=== PATIENT | female | born 1990 | race Caucasian/White ===

== ENCOUNTER 2017-11-02 07:06 | Outpatient (CLI) | payer OTHER ==
--- NOTE | 2017-11-02 09:57 | ULT ---
RENAL ULTRASOUND DOPPLER DUPLEX Date: 11-02-17 History: IGA nephropathy. N03.1 Proteinuria. R80.9 Hematuria. N02.1, R31.9 Chronic renal failure. N18.1 Urinary tract infection. N39.0 Incontinence. R32 Technique: Grayscale images of bilateral kidneys and urinary bladder. Color flow and spectral analysis of select arteries associated with bilateral kidneys. FINDINGS: Highest peak systolic velocities: Right renal artery: 140 cm/s Left renal artery: 150 cm/s Aorta: 150 cm/s Right renal artery/aorta ratio: 1.0 Left renal artery/aorta ratio: 1.0 Resistive Index: Right arcuate: 0.62 Left arcuate: 0.63 Renal measurements: Right kidney: 13.5 x 5 x 5.5 cm Left kidney: 13 x 6.5 x 6 cm No hydronephrosis bilaterally. No moderate sized or large solid renal mass or cyst identified. Bladder volume: 28 ml at the time of this scan. IMPRESSION: No pathology identified. POS: [facility]
== END 2017-11-02 07:07 | disposition home or self-care (01) ==
LOC: SCSULT 07:06
PROVIDERS: ATTEND Family Medicine
DX: N18.9 Chronic kidney disease, unspecified (principal); D63.1 Anemia in chronic kidney disease; N02.8 Recurrent and persistent hematuria with other morphologic changes; R80.9 Proteinuria, unspecified; R31.9 Hematuria, unspecified; E66.9 Obesity, unspecified; M19.90 Unspecified osteoarthritis, unspecified site; R32 Unspecified urinary incontinence; N39.0 Urinary tract infection, site not specified
CPT/HCPCS: 76700; 76770

== ENCOUNTER 2018-07-14 08:22 | Outpatient (CLI) | payer OTHER ==
[2018-07-14 09:17] LABS: BHCG - Serum Negative (NEGATIVE); Pregs Control Background? CLEAR/WHITE (CLR/WHITE); Pregs Control Bar Appear? YES (CONTROL BAR)
[2018-07-14 09:48] LABS: Estimated GFR-MDRD - POC Greater than 90
[2018-07-14] MEDS ORDERED: Iopamidol 370 76% 100 ML VIAL ONE (10:06)
--- NOTE | 2018-07-14 11:57 | CT ---
CT ANGIOGRAM OF THE ABDOMEN: Date: 07-14-18 Comparison: None. History: IGA nephropathy, hematuria, evaluate arterial structures. Technique: Axial CT imaging at 2.5 mm intervals through the abdomen with IV contrast using a CT angio gram protocol. Coronal and sagittal 3D reformatted imaging obtained. FINDINGS: Imaged lung bases are grossly unremarkable, slightly limiting assessment secondary to respiratory mot ion artifact. Superior aspect of the liver is not fully imaged on this exam. The imaged hepatic paren chyma appears grossly unremarkable. Cholecystectomy clips are present. The spleen, the pancreas, and the adrenal glands appear grossly unremarkable. The kidneys are unremarkable. The abdominal aorta demonstrates no evidence for aneurysm or dissection. The celiac axis, the superior mesenteric artery, and the inferior mesenteric artery are patent and of normal caliber. The renal arteries are patent and of normal caliber bilaterally. No vascular lesion is seen involving either kidney. There is no lymphadenopathy in the abdomen. Osseous structures appear grossly unremarkable. IMPRESSION: Unremarkable CT angiogram of the abdomen. POS: [facility]
== END 2018-07-14 08:23 | disposition home or self-care (01) ==
LOC: CT 08:22
PROVIDERS: ATTEND Internal Medicine Nephrology
DX: Z32.00 Encounter for pregnancy test, result unknown (principal); N03.1 Chronic nephritic syndrome with focal and segmental glomerular lesions; R80.9 Proteinuria, unspecified; R31.9 Hematuria, unspecified; N18.1 Chronic kidney disease, stage 1; E66.9 Obesity, unspecified; M19.90 Unspecified osteoarthritis, unspecified site; D63.1 Anemia in chronic kidney disease; R32 Unspecified urinary incontinence; N39.0 Urinary tract infection, site not specified
CPT/HCPCS: 36415; 74175; 82565; 84703

== ENCOUNTER 2018-08-22 01:13 | Outpatient (CLI) | payer OTHER ==
[2018-08-22 09:35] LABS: Hemoglobin 11.3 g/dL (12.0-16.0); Mean Corpuscular HGB CONC 33.4 g/dL (32.0-36.0); Mean Corpuscular Hemoglobin 28.8 pg (27.0-31.0); Mean Corpuscular Volume 86.2 fL (78.0-98.0); Mean Platelet Volume 6.9 fL (7.4-10.4); Platelet Count 405 thou/uL (130-400); Red Blood Cell (RBC) Count 3.91 mill/uL (4.20-5.40); White Blood Cell (WBC) Count 8.1 thou/uL (4.8-10.8)
[2018-08-22 09:36] LABS: BHCG - Serum Negative (NEGATIVE); Pregs Control Background? CLEAR/WHITE (CLR/WHITE); Pregs Control Bar Appear? YES (CONTROL BAR)
[2018-08-22 09:38] LABS: PTT 31.2 SEC (22.9-36.1); Prothrombin Time 13.6 SEC (12.0-14.7)
[2018-08-22 09:42] LABS: Bilirubin Negative (Negative); Blood, Urine Large (Negative); Clarity CLEAR (Clear); Glucose, Urine (Dipstick) Negative (Negative); Leukocyte Negative (Negative); Nitrite Negative (Negative); Protein, Urine (Dipstick) 30 mg/dL (Neg-Trace); Specific Gravity, Urine 1.016 (1.002-1.036); Urobilinogen 0.2 mg/dL (0.2-1.0)
[2018-08-22 09:45] LABS: Bacteria/HPF None Seen HPF (None Seen); Hyaline Casts/LPF 0-3 HYALINE CAST LPF (0-3 Hyaline); RBC/HPF 21-50 HPF (0-3); Squamous Epithelial None Seen HPF (0-3); WBC/HPF 0-3 HPF (0-3); Yeast-AUWi Flag 21.9 (0-25.0)
[2018-08-22 09:48] LABS: Anion Gap 13 mmol/L (10-20); BUN (Urea Nitrogen) 19 mg/dL (7.0-18.7); Calc. Creatinine Clearance 0 mL/min (70-130); Calcium 9.7 mg/dL (7.8-10.44); Carbon Dioxide 25 mmol/L (22-29); Chloride 105 mmol/L (98-107); Estimated GFR-MDRD Greater than 90; Glucose 86 mg/dL (70-105); Potassium 3.6 mmol/L (3.5-5.1); Sodium 139 mmol/L (136-145)
--- NOTE | 2018-08-22 16:24 | EKG ---
Test Reason : Blood Pressure : / mmHG Vent. Rate : 068 BPM Atrial Rate : 068 BPM P-R Int : 170 ms QRS Dur : 088 ms QT Int : 404 ms P-R-T Axes : 048 064 052 degrees QTc Int : 429 ms Normal sinus rhythm Normal ECG Confirmed by CAMILA ASCENCIO ([id number]) on 08/22/2018 4:24:20 PM Referred By: Jass CORBIN Confirmed By:CAMILA ASCENCIO
== END 2018-08-22 01:14 | disposition home or self-care (01) ==
LOC: LABBT 01:13
PROVIDERS: ATTEND Urology
DX: Z01.818 Encounter for other preprocedural examination (principal); R31.0 Gross hematuria
CPT/HCPCS: 80048; 81001; 84703; 85027; 85610; 85730; 87086; 93005; 93010

== ENCOUNTER 2018-08-31 05:54 | Day surgery (SDC) | payer OTHER ==
[2018-08-22 08:13] VITALS: BMI 39.1
[2018-08-31] MEDS ORDERED: Midazolam HCl 2 mg/2 ml Vial ONE (06:29)
[2018-08-31] MEDS ORDERED: Fentanyl 100 MCG/2 ML VIAL ONE ×5 (06:29→13:52)
[2018-08-31] MEDS ORDERED: Levofloxacin 500 mg/D5W 100 ml Premix Bag ONE (06:44)
[2018-08-31] MEDS ORDERED: Iothalamate Meglumine 60% 50 ML VIAL FS ONE (07:20)
[2018-08-31] MEDS ORDERED: Promethazine HCl 25 MG/ML VIAL ONE (08:42)
[2018-08-31] MEDS ORDERED: diphenhydrAMINE 50 MG/ML VIAL ONE (09:38)
[2018-08-31] MEDS ORDERED: Morphine 4 MG/ML VIAL ONE ×2 (09:54→10:54)
--- NOTE | 2018-08-31 10:16 | OP ---
DATE OF PROCEDURE: 08/31/2018 SERVICE: Urology. PREOPERATIVE DIAGNOSIS: Gross hematuria. POSTOPERATIVE DIAGNOSIS: Gross hematuria. PROCEDURE PERFORMED: Bilateral diagnostic ureteroscopy. INDICATION FOR PROCEDURE: Ms. Gambino is a 28-year-old white female, who presented with recurrent episodes of gross hematuria without explainable etiology. She apparently does have IgA nephropathy, but Dr. Cohn had requested that she have a complete workup with diagnostic ureteroscopy to look for a source of why she may have gross hematuria aside from the nephropathy. Unfortunately, it is difficult to predict when she will have the bleeding, and ureteroscopy and cystoscopy would likely be difficult to visualize anything in the midst of significant amounts of blood, as such we have elected to proceed forward with upper tract endoscopies while she is not bleeding to look for possible AV malformations or other potential sources of bleeding. All risks and benefits have been discussed and she has agreed to proceed forward. DESCRIPTION OF PROCEDURE: After identification of armband and verification of consent, the patient was brought back to the operating room, where she underwent general anesthesia with an LMA. She was then placed in dorsal lithotomy position and prepped and draped in the usual sterile fashion. After appropriate time-out, a cystoscope was introduced per urethra into the bladder. A full cystoscopy was reperformed and did not demonstrate any potential sources of bleeding within the bladder. The ureters appeared normal without edema or bleeding. The bladder was otherwise unremarkable with the urethra being normal. The left ureteral orifice was cannulated with a 0.035 Super Stiff wire up to the level of the renal pelvis. The cystoscope was then removed leaving the Super Stiff wire in place as a guide for the ureteroscope. The ureteroscope had some difficulty passing into the distal ureter, so we did have to dilate the left ureter gently with an 11/13-Hebrew ureteral access sheath. The ureteroscope was then able to be passed easily into the distal ureter all the way up into the renal pelvis over the Super Stiff wire. The wire was then removed and a full pyeloscopy was performed on the side. Other than the mild submucosal trauma from the wire itself, there were no obvious sources of bleeding. No AV malformation, masses, or anything was noted to be bleeding at the time of the ureteroscopy from the left side. Subsequently, the exact same procedure was repeated on the right except no dilation was necessary on the right side. The ureteroscope was able to be passed over the Super Stiff wire up the right ureter into the renal pelvis. On this side additionally, there was no bleeding, AV malformations, masses, or any abnormalities with the renal papilla on this side. In essence, there was no source of hematuria that could be identified on the bilateral diagnostic ureteroscopies and cystoscopy today. As such, the ureteroscope was removed and pull-back ureteroscopy was employed on both sides with no identifiable sources within either ureter. The ureteroscope was removed. The sheath of the cystoscope was used to drain the patient's bladder and then removed. The patient was then awakened, taken to PACU for recovery in stable condition. COMPLICATIONS: None. ESTIMATED BLOOD LOSS: Minimal. RETAINED TUBES AND DRAINS: None. SPECIMENS: None. DISPOSITION: The patient will be discharged home and follow up with me in approximately 2 weeks. We will then subsequently discuss further medical workup as a source of the hematuria. Job ID: [id number]
[2018-08-31] MEDS ORDERED: Hyoscyamine Sulfate SL 0.125 mg Tablet ONE (10:22)
[2018-08-31] MEDS ORDERED: Tamsulosin HCl 0.4 MG CAP ONE (10:54)
[2018-08-31] MEDS ORDERED: Morphine 2 MG/ML SYRINGE ONE (11:18)
[2018-08-31] MEDS ORDERED: Lidocaine 1% PF 5 ML VIAL ONE (12:39)
[2018-08-31] MEDS ORDERED: PROPOFOL 200 MG/20 ML VIAL ONE (12:39)
[2018-08-31] MEDS ORDERED: Dexamethasone 20 MG/5 ML VIAL ONE (12:39)
[2018-08-31] MEDS ORDERED: Ondansetron PF 4 MG/2 ML Vial ONE (12:39)
== END 2018-08-31 14:10 | disposition home or self-care (01) ==
LOC: SDC 05:54
PROVIDERS: ATTEND Urology
PROC: 0TJ58ZZ Inspection of Kidney, Via Natural or Artificial Opening Endoscopic (ICD-10-PCS; principal; 2018-08-31)
DX: N02.8 Recurrent and persistent hematuria with other morphologic changes (principal); Z79.899 Other long term (current) drug therapy
CPT/HCPCS: 74420; C1758; C1769; J1100; J1200; J1956; J2001; J2250; J2270; J2405; J2550; J2704; J3010; Q9961

== ENCOUNTER 2018-10-24 12:41 | Outpatient (CLI) | payer OTHER ==
--- NOTE | 2018-10-24 13:11 | ULT ---
Exam: Bilateral renal ultrasound HISTORY: Gross hematuria COMPARISON: Renal ultrasound dated 08/24/2016 and a CTA of the abdomen dated July 14, 2018 FINDINGS: Right kidney: Normal cortical echotexture. No hydronephrosis. Right kidney measurements: The right kidney measures 13.4 x 6.1 x 5.6 cm. Left kidney: Normal cortical echotexture. No hydronephrosis Left kidney measurements: The left kidney measures 13.3 x 7.5 x 7.2 cm. Urinary bladder: The prevoid bladder volume is 310 cc. The post void bladder volume is 45 cc. IMPRESSION: No focal renal lesion or hydronephrosis.
== END 2018-10-24 12:42 | disposition home or self-care (01) ==
LOC: SCSULT 12:41
PROVIDERS: ATTEND Urology
DX: R31.0 Gross hematuria (principal)
CPT/HCPCS: 76770

== ENCOUNTER 2021-04-30 15:27 | Outpatient (CLI) | payer OTHER | END 2021-04-30 15:28 | disposition home or self-care (01) | LOC: DTY/OP 15:27 | PROVIDERS: ATTEND Surgery | DX: E66.01 Morbid (severe) obesity due to excess calories (principal); Z68.41 Body mass index [BMI] 40.0-44.9, adult | CPT/HCPCS: 97802 ==